=== PATIENT | female | born 1955 | race Caucasian/White ===

== ENCOUNTER 2017-01-11 21:42 | Emergency (ER) | payer OTHER ==
[~2017-01-11] VITALS: Ht 177.8 cm; Wt 89.5 kg
[~2017-01-11 21:42] MED LIST: AMOX1TAB10 PO; HYDR-3498 PO
[2017-01-11 21:45] VITALS: Ht 177.8 cm; Wt 89.5 kg
[2017-01-11] MEDS ORDERED: DIPHENHYDRAMINE 50 MG INJ IM ONE (22:30)
[2017-01-11] MEDS ORDERED: DEXAMETHASONE 10 MG/ML 1 ML INJ IM ONE (22:30)
--- NOTE | 2017-01-11 22:32 | ERD ---
ER Documentation Chief Complaint Date/Time DATE: 01/11/17 TIME: 22:26 Chief Complaint bee stings abdominal area, face, hands HPI 61 year old female presents here in the ER for complaints of multiple bee stings in the body after accidentally stepping on a hive while hiking today. Patient is complaining of pain on the area, sharp pain 4/10 scale, is worse upon touching the area. Patient did not take any medications up with symptoms. Patient denies any shortness of breath, stridor. ROS All systems reviewed and are negative except as per history of present illness. Medications Home Meds Active Scripts Amox Tr/Potassium Clavulanate (Amox Tr-K Clv 875-125 Mg Tab) 1 Tab Tablet, 1 TAB PO BID, #20 TAB Prov:JACI DUQUE PA-C 02/16/16 Hydrocodone Bit-Acetaminophen* ([place]*) 5-325 Mg Tab, 1 TAB PO DAILY Y for PAIN , #10 TAB 0 Refills Prov:HARLEEN HARE PA-C 09/02/15 Allergies Allergies: Coded Allergies: Sulfa (Sulfonamide Antibiotics) (Unverified Allergy, Mild, rash, 02/16/16) PMhx/Soc History of Surgery: No Anesthesia Reaction: No Hx Neurological Disorder: No Hx Respiratory Disorders: No Hx Cardiac Disorders: No Hx Psychiatric Problems: No Hx Miscellaneous Medical Probl: Yes (BACK PAIN) Hx Alcohol Use: No Hx Substance Use: No Hx Tobacco Use: No FmHx Family History: No coronary disease, No diabetes, No other Physical Exam Vitals Vital Signs Date Time Temp Pulse Resp B/P Pulse Ox O2 Delivery O2 Flow Rate FiO2 01/11/17 21:45 97.8 98 20 129/68 97 Physical Exam GENERAL: The patient is well developed and appropriate for usual state of health, in no apparent distress. CHEST: Clear to auscultation bilaterally. There are no rales, wheezes or rhonchi. HEART: Regular rate and rhythm. No murmurs, clicks, rubs or gallops. No S3 or S4. ABDOMEN: Soft, nontender and nondistended. Good bowel sounds. No rebound or guarding. No gross peritonitis. No gross organomegaly or masses. No Chawla sign or McBurney point tenderness. BACK: No midline or flank tenderness. EXTREMITIES: Equal pulses bilaterally. There is no peripheral clubbing, cyanosis or edema. No focal swelling or erythema. Full range of motion. Grossly neurovascularly intact. NEURO: Alert and oriented. Cranial nerves 2-12 intact. Motor strength in all 4 extremities with 5/5 strength. Sensation grossly intact. Normal speech and gait. SKIN: Maculopapular rash noted all over the body with some stings noted in some areas. There is no apparent rash or petechia. The skin is warm and dry. HEMATOLOGIC AND LYMPHATIC: There is no evidence of excessive bruising or lymphedema. No gross cervical, axillary, or inguinal lymphadenopathy. Results 24 hrs Current Medications Medications (Trade) Dose Ordered Sig/Diamond Route PRN Reason Start Time Stop Time Status Last Admin Dose Admin Diphenhydramine HCl (Benadryl) 50 mg ONCE ONCE IM 01/11/17 22:30 01/11/17 22:31 01/11/17 22:22 Dexamethasone (Decadron) 10 mg ONCE ONCE IM 01/11/17 22:30 01/11/17 22:31 01/11/17 22:22 Benadryl and Decadron given here in emergency department to prevent reaction from the bee stings. Procedures/MDM Medical decision making: Patient's symptoms are likely consistent with reaction from bee stings,of anaphylactic shock at this time, no symptoms of angioedema, no symptoms of respiratory distress, no symptoms of any acute infection at this time. To prevent reaction, patient was given Decadron and Benadryl here in emergency department, will be sent home with Benadryl and prednisone, will also be given Keflex to Prevent Infection Considering Patient Is Also Has a History of HIV. Patient was advised to follow-up with primary care doctor in 2-3 days for reevaluation symptoms. Patient was advised to return to ER for any worsening symptoms Disposition: Home. Stable Departure Diagnosis: Primary Impression: Bee sting Encounter type: initial encounter Injury intent: accidental or unintentional Qualified Code: T63.441A - Bee sting, accidental or unintentional, initial encounter Condition: Stable Patient Instructions: Insect Bites and Stings PEEWEE SHETH NP Jan 11, 2017 22:32
[2017-01-11] MEDS ORDERED: IBUP-1542 PO (22:34)
[2017-01-11] MEDS ORDERED: PRED50TA PO (22:34)
[2017-01-11] MEDS ORDERED: CEPH-443 PO (22:34)
[2017-01-11] MEDS ORDERED: BEN50 PO (22:34)
== END 2017-01-11 22:50 | disposition home or self-care (01) ==
LOC: FTE 21:42
DX: T63.441A Toxic effect of venom of bees, accidental (unintentional), initial encounter (principal)
CPT/HCPCS: J1100; J1200; 96372